=== PATIENT | male | born 1945 | race Caucasian/White ===

== ENCOUNTER → 2020-02-12 | Day surgery (SDC) | payer OTHER ==
[2020-02-10 10:46] LABS: COVID AG,FIA SOURCE NASOPHARYNGEAL
[~2020-02-12] VITALS: Ht 160 cm; Wt 80.9 kg
[~2020-02-12] MED LIST: 0.9% SODIUM CHLORIDE 10 ML SYRINGE IVP PRN; ACET325S20 PR; AMIO200T68 PO; ASPE90C TP; ATOR40TA28 PO; BALANCED SALT 15 ML OPHTHALMIC IRRIG.SOLN ONE; BROM5DRO3 OS; CALC-1106 PO; CAPS1ADH9 TP; CYCLOPENTOLATE HCL 1% 2 ML OPHTHALMIC SOLUTION ONE; DABI150 PO; EPINEPHrine 1:1,000 [1 MG/ML] AMP ONE; FentaNYL CITRATE-PF 100 MCG/2 ML VIAL IVP ONE; GABA-1181 PO; HYALURONATE SOD/CHONDROITIN SOD 0.5 ML VIAL IO ONE; HYALURONATE SODIUM 12 MG/ML 0.8 ML SYRINGE IO ONE; HYPR15DR23 OU; KETOROLAC TROMETHAMINE 0.5% 5 ML OPHTHALMIC SOLUTION ONE; LIDOCAINE/PF 1% 2 ML VIAL ONE; MECL-169 PO; MIDAZOLAM HCL 2 MG/2 ML VIAL IVP ONE; MOXI3DRO12 OU; MOXIFLOXACIN HCL 0.5% 3 ML OPHTHALMIC SOLUTION ONE; PHENYLEPHRINE HCL 2.5% 2 ML OPHTHALMIC SOLUTION ONE; POVIDONE-IODINE 10% 15 ML SOLUTION UD ONE; PREDAOS OU; RINGERS SOLUTION,LACTATED 500 ML IV ONE; TETRACAINE HCL/PF 0.5% 4 ML OPHTHALMIC SOLUTION ONE; TROPICAMIDE 1% 2 ML OPHTHALMIC SOLUTION ONE
[2020-02-12] MEDS: TROPICAMIDE 1% 2 ML OPHTHALMIC SOLUTION OD SCH ×3 (07:03→07:19)
[2020-02-12] MEDS: CYCLOPENTOLATE HCL 1% 2 ML OPHTHALMIC SOLUTION OD SCH ×3 (07:03→07:19)
[2020-02-12] MEDS: PHENYLEPHRINE HCL 2.5% 2 ML OPHTHALMIC SOLUTION OD SCH ×3 (07:04→07:19)
[2020-02-12] MEDS: MOXIFLOXACIN HCL 0.5% 3 ML OPHTHALMIC SOLUTION OD SCH ×3 (07:04→07:19)
[2020-02-12] MEDS: KETOROLAC TROMETHAMINE 0.5% 5 ML OPHTHALMIC SOLUTION OD SCH ×3 (07:05→07:21)
[2020-02-12 07:10] LABS: GLUCOMETER DEV NAME(LOC) SDS.; GLUCOSE,POINT OF CARE 95 MG/DL (70-110)
== END | disposition home or self-care (01) ==
LOC: SURGERY 06:00
PROVIDERS: ATTEND Ophthalmology Glaucoma Specialist
DX: H25.11 Age-related nuclear cataract, right eye (principal); I10 Essential (primary) hypertension; E78.00 Pure hypercholesterolemia, unspecified; Z86.73 Personal history of transient ischemic attack (TIA), and cerebral infarction without residual deficits; I48.91 Unspecified atrial fibrillation; Z20.828 Contact with and (suspected) exposure to other viral communicable diseases
CPT/HCPCS: 66982; 82962; 87426; 93005; C9803; J0171; J2250; J3010; J3490 ×2; J7120; V2632